=== PATIENT | male | born 1975 | race Caucasian/White ===

== ENCOUNTER 2023-09-15 04:05 | Emergency (ER) | payer BC, SELFPAY ==
--- NOTE | ~2023-09-15 | CT_ITS ---
EXAMINATION: CT abdomen pelvis wo con DATE: 09/15/2023 05:24 INDICATION: Right flank pain. TECHNIQUE: Computed tomography (CT) of the abdomen and pelvis was performed without intravenous contr ast. Automated exposure control and iterative reconstruction technique were employed. The dose-length product was 1531.54 mGy-cm. COMPARISON: None. FINDINGS: The visualized portions of the lung bases demonstrate mild atelectasis. A calcified left ibeth ng nodule is consistent with old granulomatous disease. No pleural effusion. The heart size is normal . No pericardial effusion. The liver and spleen are normal. There is a gallstone in the gallbladder, which is normal in size. The pancreas, adrenal glands, and left kidney are normal. There is mild righ t hydronephrosis and hydroureter. There is a 3 mm stone in distal right ureter. There are bilateral i nguinal hernias containing fat. There are no dilated loops of bowel. The appendix is normal. There ar e no pathologically enlarged lymph nodes. There is no free intraperitoneal fluid. There is mild thora cic and lumbar spondylosis. IMPRESSION: 1. 3 mm stone in distal ureter with mild right hydronephrosis and hydroureter. Reviewed, dictated and finalized at location E.
[2023-09-15 04:08] VITALS: BP 154/98; PULSE 85; RESP 20; TEMP 36.9; O2SAT 99
[2023-09-15 04:30] LABS: Basophils Absolute Auto 0.1 K/mm3 (0.0-0.1); Basophils Percent Auto 0.6 % (0.2-1.2); Eosinophils Absolute Auto 0.2 K/mm3 (0-0.3); Eosinophils Percent Auto 1.4 % (0-4.4); Hematocrit 42.1 % (42.0-52.0); Hemoglobin 13.5 g/dL (14.0-18.0); Immature Granulocyte Absolute 0.23 K/mm3 (0.00-0.031); Immature Granulocyte Percent A 1.9 % (0-0.5); Lymphocytes Absolute Auto 1.76 K/mm3 (0.9-3.2); Lymphocytes Percent Auto 14.5 % (18.3-44.2); Mean Corpuscular HGB Conc 32.1 g/dl (32-36); Mean Corpuscular Hemoglobin 28.7 pg (26-34); Mean Corpuscular Volume 89.4 fl (80-100); Mean Platelet Volume 9.3 fl (7.4-10.4); Monocytes Absolute Auto 0.9 K/mm3 (0.1-0.6); Monocytes Percent Auto 7.5 % (2.6-8.5); Neutrophils Percent Auto 74.1 % (45.5-73.1); Platelet Count Result 398 k/mm3 (150-375); Red Blood Count 4.71 M/mm3 (4.6-6.20); Red Cell Distribution Width 12.8 % (11.5-14.5); White Blood Count 12.2 K/mm3 (4.5-10.0)
[2023-09-15 04:44] LABS: Alanine Aminotransferase 40 U/L (6-50); Albumin Level 4.5 g/dL (3.5-5.1); Alkaline Phosphatase 97 U/L (38-126); Anion Gap 7 mmol/L (8-16); Aspartate Amino Transferase 42 U/L (17-59); Bilirubin,Total 0.5 mg/dL (0.2-1.3); Blood Urea Nitrogen 16 mg/dL (9-20); Calcium 9.6 mg/dL (8.4-10.2); Carbon Dioxide 29 mmol/L (22-30); Chloride 102 mmol/L (98-107); Estimated CRCL calculation 85 ml/min; Estimated Glomerular Filt Rate 59; Glucose 156 mg/dL (65-110); Potassium 4.1 mmol/L (3.4-5.0); Sodium 138 mmol/L (137-145)
[2023-09-15] MEDS: SODIUM CHLORIDE 0.9% IV 1,000 ML 999 ML IV CONT (04:47)
[2023-09-15] MEDS: ONDANSETRON INJ 4 MG/2 ML VIAL IV PUSH (04:48)
[2023-09-15] MEDS: MORPHINE SULFATE (*CRX) 4 MG/ML INJ IV PUSH (04:48)
[2023-09-15] MEDS: KETOROLAC 15 MG/ML VIAL (*BKC) IV PUSH (04:48)
[2023-09-15 05:02] LABS: Add Urine Microscopic? YES
[2023-09-15 05:05] LABS: Bacteria Urine None Seen /hpf; Non Pathogenic Casts 0-2; Squamous Epithelial Cell Urine None Seen /hpf (Few); WBC Urine 0-5 /hpf (0-3)
[2023-09-15 05:09] LABS: Appearance Urine Clear (Clear); Bilirubin Urine Negative (Negative); Blood Urine 1+ (Negative); Color Urine Yellow (Yellow); Glucose Urine UA Negative (Negative); Ketones Urine Negative (Negative); Leukocyte Esterase Ur Negative LEU/UL (Negative); Nitrate Urine Negative (Negative); Protein Urine Trace mg/dL (Negative); Specific Grav Ur >= 1.030 (1.001-1.035); Urobilinogen Urine 0.2 mg/dL (<2.0)
--- NOTE | 2023-09-15 05:56 | ED.GENADULT ---
HPI - General Adult General Chief complaint: Urogenital-Male Stated complaint: abd pain Time Seen by Provider: 09/15/23 04:18 History of Present Illness HPI narrative: Patient is a 48-year-old male who presents to the emergency department this morning complaining of right sided flank pain. Patient states that the pain was sudden onset and woke up from sleep and rated a 10/10. Denies any similar pain in the past. [place]. Patient states that he has not been able to urinate since he woke up and is unsure if that is due to the pain. Feels nauseous but denies any vomiting episode prior to arrival. Patient denies any additional symptoms at this time. There are no other modifying, alleviating, or precipitating factors. Related Data Allergies Allergy/AdvReac Type Severity Reaction Status Date / Time No Known Allergies Allergy Verified 09/15/23 04:19 Review of Systems Review of Systems: All systems are reviewed and are negative unless stated otherwise in the HPI. PMFSH Comments Denies any significant past medical or surgical history, denies any pertinent family history and denies any alcohol abuse or illicit drug use. Exam Narrative: General: Alert, awake, afebrile, in moderate distress. HEENT: PERRL, no rhinorrhea, no post nasal drip, oropharynx clear. Neck: Trachea midline, no JVD, no lymphadenopathy. Cardiovascular: Regular rate and rhythm, no murmurs, rubs or gallops, no peripheral edema. Respiratory: Clear to auscultation bilaterally, no tachypnea, no wheezing, no rhonchi, no rubs, no respiratory distress. Abdomen: Soft, tenderness to palpation over the right flank region and right mid abdominal region, nondistended, no rebound, no guarding, no peritoneal signs. Musculoskeletal: No joint swelling or deformity, normal muscle tone. Skin: No rashes or petechia, no signs of infection. Psychiatric: Alert and oriented, normal behavior and judgment for situation. Neurological: Alert and oriented to person, place, and time. Follows all commands. No focal deficits, speech is clear and fluent. Course Vital Signs Vital signs: Vital Signs Temperature 98.4 F 09/15/23 04:08 Pulse Rate 85 09/15/23 04:08 Respiratory Rate 20 09/15/23 04:08 Blood Pressure 154/98 H 09/15/23 04:08 Pulse Oximetry 99 09/15/23 04:08 Oxygen Delivery Room Air 09/15/23 04:08 Temperature 98.4 F 09/15/23 04:08 Pulse Rate 85 09/15/23 04:08 Respiratory Rate 20 09/15/23 04:08 Blood Pressure 154/98 H 09/15/23 04:08 Pulse Oximetry 99 09/15/23 04:08 Oxygen Delivery Room Air 09/15/23 04:08 Medical Decision Making MDM Narrative Medical decision making narrative: The patient was evaluated by myself in the emergency department. History is obtained from patient who is an independent historian and physical exam was performed. External medical records were reviewed at this time. IV was established and pertinent tests were ordered. Shortly after arrival to our emergency department, patient started to actively vomit secondary to pain. Patient was administered 1 L IV fluid bolus with normal saline, 50 mg of IV Toradol, 4 mg of IV Zofran and 4 mg of IV morphine. Laboratory results obtained revealing no acute process. Urinalysis revealed 1+ blood. Imaging studies obtained included CT abdomen pelvis without IV contrast which was independently interpreted by me revealing a right 3 mm distal ureter stone with mild right hydroureter and hydronephrosis, which is pending final radiology interpretation. Differential diagnosis considerations include kidney stone, cholecystitis and pyelonephritis. Comorbidities impacting this visit include none. I have evaluated and discussed social determinants of health with the patient that could potentially impact subsequent diagnosis and treatment plans. On repeat assessment of the patient, reevaluation revealed that the patient is doin
[2023-09-15 06:23] VITALS: BP 156/91; PULSE 69; RESP 18; O2SAT 97
== END 2023-09-15 06:24 | disposition home or self-care (01) ==
PROVIDERS: Emergency Provider Emergency Medicine
DX: N20.0 Calculus of kidney (principal)
CPT/HCPCS: 36415; 74176; 80053; 81001; 85025; 96361; 96374; 96375; 99284; J1885; J2270; J2405; J7030